=== PATIENT | male | born 1985 | race Caucasian/White ===

== ENCOUNTER 2025-04-14 04:15 | Outpatient (CLI) | payer MEDICAID, SELFPAY | END 2025-04-14 04:16 | disposition home or self-care (01) | LOC: AMB 04-15 10:18 | PROVIDERS: Visit Provider Orthopaedic Surgery | DX: T14.90XA Injury, unspecified, initial encounter (principal); V48.0XXA Car driver injured in noncollision transport accident in nontraffic accident, initial encounter; Y92.410 Unspecified street and highway as the place of occurrence of the external cause | CPT/HCPCS: A0998 ==